=== PATIENT | male | born 1990 | race Caucasian/White ===

== ENCOUNTER 2019-03-29 05:38 | Inpatient (IN) | payer MEDICAID ==
[~2019-03-29] VITALS: Ht 193 cm; Wt 80.6 kg
[2019-03-29 07:11] LABS: BASOPHILS % (AUTO) 0.3 % (0.0-2.0); EOSINOPHILS % (AUTO) 0.4 % (1.0-6.0); HEMATOCRIT 40.7 % (41-53); HEMOGLOBIN 14.1 g/dL (13.5-17.5); LYMPHOCYTES # (AUTO) 0.9 K/uL (1.0-4.8); MEAN CORPUSCULAR HGB CONC 34.5 G/dL (31.0-37.0); MEAN CORPUSCULAR VOLUME 84 fL (80-100); MONOCYTES # (AUTO) 0.6 K/uL (0.1-1.0); MONOCYTES % (AUTO) 7.1 % (2.0-9.0); NEUTROPHILS # (AUTO) 7.4 K/uL (1.8-7.7); NEUTROPHILS % (AUTO) 82.2 % (40.0-70.0); PLATELET COUNT (AUTO) 333 K/uL (150-450); RED BLOOD CELL COUNT(AUTO) 4.84 MIL/uL (4.50-5.90)
[2019-03-29 07:21] LABS: ANION GAP 9 mmol/L (8-16); CALCIUM, TOTAL 9.4 mg/dL (8.8-10.5); CARBON DIOXIDE 29 mmol/L (22-29); CHLORIDE 99 mmol/L (98-107); CREATININE 0.93 mg/dL (0.60-1.30); GLOMERULAR FILTR. RATE CALC > 60 mL/min (>60); GLUCOSE,RANDOM 112 mg/dL (70-110); SODIUM SERUM 137 mmol/L (136-145); UREA NITROGEN, BLOOD 14 mg/dL (7-18)
[2019-03-29 07:25] LABS: ALANINE AMINOTRANSFERASE 28 U/L (12-78); ALBUMIN 4.4 g/dL (3.4-5.0); ALKALINE PHOSPHATASE 74 U/L (46-116); ASPARTATE AMINOTRANSFERASE 26 U/L (15-37); BILIRUBIN,TOTAL 0.7 mg/dL (0.1-1.0); TOTAL PROTEIN, SERUM 8.4 g/dL (6.4-8.2)
[2019-03-29 07:33] LABS: AMPHET/METH SCREEN,URINE POSITIVE (NEGATIVE); BARBITURATE SCREEN, URINE NEGATIVE (NEGATIVE); BENZODIAZEPINES SCREEN,URINE NEGATIVE (NEGATIVE); CANNABINOID SCREEN,URINE POSITIVE (NEGATIVE); COCAINE SCREEN,URINE NEGATIVE (NEGATIVE); METHADONE SCREEN, URINE NEGATIVE (NEGATIVE); OPIATE SCREEN,URINE NEGATIVE (NEGATIVE); PHENCYCLIDINE SCREEN,URINE NEGATIVE (NEGATIVE)
[2019-03-29] MEDS ORDERED: LORazepam 1 MG TABLET PO ONE (10:15)
[2019-03-29] MEDS ORDERED: ZOLPIDEM TARTRATE 10 MG TABLET PO PRN (10:45)
[2019-03-29] MEDS ORDERED: CloNIDine HCL 0.1 MG TABLET PO PRN (11:30)
[2019-03-29 14:30] VITALS: BP 134/89
[2019-03-29] MEDS ORDERED: BACITRACIN 28.4 GM OINTMENT TP PRN (14:30)
[2019-03-30 06:39] VITALS: BP 131/79
[2019-03-30 08:37] LABS: CHOL/HDL RATIO 2.1 (4.2-7.3)
[2019-03-30 10:30] VITALS: BP 117/67
[2019-03-30] MEDS: LORazepam 2 MG TABLET PO PRN ×2 (10:34→16:20)
[2019-03-30] MEDS: RisperiDONE 1 MG TABLET PO SCH ×2 (12:53→16:20)
[2019-03-30] MEDS: DIVALPROEX SODIUM 500 MG ER TABLET PO SCH ×2 (12:53→16:20)
[2019-03-30 16:00] VITALS: BP 118/70
[2019-03-30] MEDS: HALOPERIDOL 5 MG TABLET PO PRN (16:20)
[2019-03-30] MEDS ORDERED: RisperiDONE 1 MG TABLET PO SCH (17:00)
[2019-03-30] MEDS ORDERED: DIVALPROEX SODIUM 500 MG ER TABLET PO SCH (17:00)
[2019-03-31 06:01] VITALS: BP 121/64
[2019-03-31 08:26] VITALS: BP 104/78
[2019-03-31] MEDS: DIVALPROEX SODIUM 500 MG ER TABLET PO SCH ×2 (09:05→18:00)
[2019-03-31] MEDS: HALOPERIDOL 5 MG TABLET PO PRN (09:05)
[2019-03-31] MEDS: RisperiDONE 1 MG TABLET PO SCH ×2 (09:05→18:00)
[2019-03-31] MEDS: LORazepam 2 MG TABLET PO PRN (09:05)
[2019-03-31 16:00] VITALS: BP 111/65
[2019-04-01 06:16] VITALS: BP 110/66
[2019-04-01 08:03] VITALS: BP 104/66
[2019-04-01] MEDS: RisperiDONE 1 MG TABLET PO SCH ×2 (08:25→16:36)
[2019-04-01] MEDS: DIVALPROEX SODIUM 500 MG ER TABLET PO SCH ×2 (08:25→16:36)
[2019-04-01] MEDS: LORazepam 2 MG TABLET PO PRN ×2 (10:45→16:36)
[2019-04-01 16:00] VITALS: BP 117/73
[2019-04-01] MEDS: HALOPERIDOL 5 MG TABLET PO PRN (16:36)
[2019-04-02 05:46] VITALS: BP 104/66
[2019-04-02] MEDS: HALOPERIDOL 5 MG TABLET PO PRN ×2 (06:59→16:17)
[2019-04-02] MEDS: LORazepam 2 MG TABLET PO PRN ×3 (06:59→16:17)
[2019-04-02 07:23] LABS: BASOPHILS % (AUTO) 0.4 % (0.0-2.0); EOSINOPHILS % (AUTO) 1.2 % (1.0-6.0); HEMATOCRIT 42.2 % (41-53); HEMOGLOBIN 14.2 g/dL (13.5-17.5); LYMPHOCYTES # (AUTO) 1.8 K/uL (1.0-4.8); LYMPHOCYTES % (AUTO) 24.9 % (22.0-44.0); MEAN CORPUSCULAR HGB CONC 33.7 G/dL (31.0-37.0); MEAN CORPUSCULAR VOLUME 86 fL (80-100); MONOCYTES # (AUTO) 0.5 K/uL (0.1-1.0); MONOCYTES % (AUTO) 7.4 % (2.0-9.0); NEUTROPHILS # (AUTO) 4.6 K/uL (1.8-7.7); NEUTROPHILS % (AUTO) 66.1 % (40.0-70.0); PLATELET COUNT (AUTO) 292 K/uL (150-450); RED CELL DISTRIBUTION WIDTH 13.1 % (11.5-14.5)
[2019-04-02 07:37] LABS: ALANINE AMINOTRANSFERASE 21 U/L (12-78); ALBUMIN 3.6 g/dL (3.4-5.0); ALKALINE PHOSPHATASE 66 U/L (46-116); ANION GAP 7 mmol/L (8-16); ASPARTATE AMINOTRANSFERASE 14 U/L (15-37); BILIRUBIN,TOTAL 0.3 mg/dL (0.1-1.0); CALCIUM, TOTAL 9.1 mg/dL (8.8-10.5); CARBON DIOXIDE 31 mmol/L (22-29); CHLORIDE 102 mmol/L (98-107); CREATININE 1.07 mg/dL (0.60-1.30); GLOMERULAR FILTR. RATE CALC > 60 mL/min (>60); GLUCOSE,RANDOM 85 mg/dL (70-110); POTASSIUM 4.5 mmol/L (3.5-5.1); SODIUM SERUM 140 mmol/L (136-145); TOTAL PROTEIN, SERUM 7.5 g/dL (6.4-8.2); UREA NITROGEN, BLOOD 13 mg/dL (7-18); VALPROIC ACID 61 mcg/mL (50-100)
[2019-04-02 08:02] VITALS: BP 112/61
[2019-04-02] MEDS: RisperiDONE 1 MG TABLET PO SCH ×2 (08:50→16:17)
[2019-04-02] MEDS: DIVALPROEX SODIUM 500 MG ER TABLET PO SCH ×2 (08:50→16:17)
[2019-04-02] MEDS ORDERED: DIVA500T52 PO (16:26)
[2019-04-02] MEDS ORDERED: RISP1 PO (16:26)
[2019-04-02 17:05] VITALS: BP 99/65
== END 2019-04-02 17:20 | disposition home or self-care (01) | DRG 750 ==
LOC: EMS 05:42 → B3A 12:34
PROVIDERS: ADMIT Psychiatry & Neurology Psychiatry; ATTEND Psychiatry & Neurology Psychiatry
DX: F20.0 Paranoid schizophrenia (principal); R45.851 Suicidal ideations; Z59.0 Homelessness; F15.90 Other stimulant use, unspecified, uncomplicated; L70.0 Acne vulgaris; I10 Essential (primary) hypertension; Z79.899 Other long term (current) drug therapy; Z91.14 Patient's other noncompliance with medication regimen
CPT/HCPCS: G0480